=== PATIENT | female | born 1975 | race Caucasian/White ===

== ENCOUNTER 2022-03-26 10:16 | Emergency (ER) | payer MEDICAID ==
[~2022-03-26] VITALS: Ht 162.6 cm; Wt 75.0 kg
[~2022-03-26 10:16] MED LIST: ACET-2708 PO; CINA30 PO; DILT180C54 PO; LEVO250T43 PO; LOSA50TA41 PO; MYCO180T PO; PRAV10TA35 PO; PRED5TAB PO; PROT20 PO; TACR0.5C PO; TERA2CAP4 PO
[2022-03-26] MEDS ORDERED: FAMOTIDINE 20MG TABLET PO ONE (10:30)
[2022-03-26] MEDS ORDERED: TETANUS, DIPHTHERIA, PERTUSSIS VAC/PF 0.5ML (>10YR OLD) IM ONE (10:30)
[2022-03-26] MEDS ORDERED: DIPHENHYDRAMINE 25MG CAPSULE PO ONE (10:30)
[2022-03-26 11:01] LABS: BASOPHILS % 0.8 % (0.0-2.0); EOSINOPHILS % 3.7 % (0.0-5.0); HEMATOCRIT. 35.8 % (36.0-48.0); HEMOGLOBIN. 11.5 g/dL (12.0-16.0); LYMPHOCYTES % 14.7 % (20.0-50.0); MEAN CORPUSCULAR VOLUME 80.7 fL (81.0-99.0); MEAN PLATELET VOLUME 8.1 fl (7.4-10.4); MONOCYTES % 7.6 % (2.0-8.0); NEUTROPHILS % 73.2 % (40.0-76.0); PLATELET 297 x1000/uL (130-400); RED BLOOD CELL COUNT 4.44 mill/uL (4.2-5.4); RED CELL DISTRIBUTION WIDTH 16.1 % (11.6-14.6)
[2022-03-26 12:59] VITALS: BP 112/73
== END 2022-03-26 13:25 | disposition home or self-care (01) ==
LOC: ER 10:16
DX: T63.441A Toxic effect of venom of bees, accidental (unintentional), initial encounter (principal); Y92.9 Unspecified place or not applicable; I12.0 Hypertensive chronic kidney disease with stage 5 chronic kidney disease or end stage renal disease; N18.6 End stage renal disease; Z99.2 Dependence on renal dialysis; E03.9 Hypothyroidism, unspecified; E78.00 Pure hypercholesterolemia, unspecified; Z88.0 Allergy status to penicillin; Z88.1 Allergy status to other antibiotic agents; Z88.3 Allergy status to other anti-infective agents; Z94.0 Kidney transplant status; Z91.018 Allergy to other foods
CPT/HCPCS: 36415; 80048; 84443; 85025; 90471; 90715; 99283; Q0163